=== PATIENT | male | born 1975 | race American Indian/Alaskan Native ===

== ENCOUNTER 2019-03-18 08:24 | Emergency (ER) | payer SELFPAY ==
--- NOTE | 2019-03-18 10:34 | Emergency Department Report ---
HPI - General Chief Complaint: Extremity Injury, Upper Time Seen by Provider: 03/18/19 10:33 - HPI HPI: This is a 43-year-old male here reported that he injured his right thumb about a month ago and is here to have it removed. He reports that the nail is discolored. He reports pain at times around the area but none today. He reports that the swelling. Denies any difficulty in moving right thumb. Denies any fever or chills. Denies any numbness or tingling. He is not having any pain at present. ED Past Medical Hx - Past Medical History Previous Medical History?: Yes Hx Headaches / Migraines: Yes - Surgical History Past Surgical History?: No - Family History Family history: no significant - Social History Smoking Status: Current Every Day Smoker Substance Use Type: Alcohol - Medications Home Medications: Home Medications Medication Instructions Recorded Confirmed Last Taken Type Ibuprofen [Motrin] 800 mg PO Q8HR PRN #12 tablet 03/18/19 Unknown Rx cephALEXin [Keflex] 500 mg PO Q8HR 7 Days #21 cap 03/18/19 Unknown Rx ED Review of Systems ROS: Stated complaint: NAIL REMOVED Other details as noted in HPI Constitutional: denies: chills, fever Respiratory: denies: cough, shortness of breath, wheezing Cardiovascular: denies: chest pain, palpitations Skin: change in hair/nails, other (right thumb with swelling and nail bed injury). denies: rash Neurological: denies: numbness, paresthesias Physical Exam - Physical Exam Vital Signs: Vital Signs 03/18/19 08:48 Temperature 98.5 F Pulse Rate 52 L Respiratory 18 Rate Blood Pressure 142/85 O2 Sat by Pulse 99 Oximetry General: 43-year-old male well-nourished well-developed in no acute distress Physical Exam: Head: Normocephalic atraumatic. Lungs: Clear to auscultated bilaterally, no rhonchi wheezes or rales. No use of accessory muscles. No chest wall tenderness CV: S1, S2. Regular rate rhythm negative murmur. Extremity: No cce. + 2 pulses in all extremities, no neurovascular compromise.No laceration, bruises then or contusion noted to extremities sent for right thumb with discolored nail. Nail bed is intact. Mild tenderness to palpate around nail bed with some erythema. No induration or fluctuance. Musculoskeletal: Range of motion in all extremities sent for minimal pain. Movement of right thumb, no joint crepitus, erythema or effusion. Skin: Clean dry and intact, no rashes no lesions Mood: Normal mood and behavior Body Four View: 1 - Right thumb discolored distal nail. nail is well secured to nail bed with no signs of nail bed injury. Mild erythema surrounding right thumb with some tenderness to palpate but no induration or fluctuance noted. ED Course Vital Signs 03/18/19 08:48 Temperature 98.5 F Pulse Rate 52 L Respiratory 18 Rate Blood Pressure 142/85 O2 Sat by Pulse 99 Oximetry - Reevaluation(s) Reevaluation #1: 03/18/19 11:24 stable throughout ED course. ED Medical Decision Making - Medical Decision Making 43-year-old patient here for removal of nail from right thumb. I discussed with patient that he has nail injury from trauma a month ago but his nail is intact and is secured to his nailbed so there is no reason to remove. Area cleansed with saline and dry dressing placed the site at patient request. I told him that he needs to keep it clean and dry and to apply warm compresses. I also discussed with him that I will put him on antibiotic for minor infection of his finger.. I discussed diagnosis, treatment plan with the patient and discussed wi th him that if area becomes worse to return to the emergency room otherwise follow-up with primary care physician that I referred him to. He was understanding and discharged home in stable condition with prescription for Keflex and Motrin. Critical care attestation.: If time is entered above; I have spent that time in minutes in the direct care of this critically ill patient, excluding procedure time. ED Disposition Clinical Impression: Paronychia of thumb Qualifiers: Laterality: right Qualified Code(s): L03.011 - Cellulitis of right finger Disposition: - TO HOME OR SELFCARE Is pt being admited?: No Does the pt Need Aspirin: No Condition: Stable Instructions: Paronychia (ED) Additional Instructions: Warm compresses to affected area Keep affected ear clean and dry Primary care physician in 2-3 days Take medication as prescribed If Area becomes worse, return to the emergency room Referrals: PRIMARY CARE, [Primary Care Provider] - 2-3 Days [facility] [Outside] - 2-3 Days Forms: Work/School Release Form(ED)
[2019-03-18 11:35] VITALS: BP 140/80
== END 2019-03-18 11:34 | disposition home or self-care (01) ==
LOC: ED 08:24
DX: L03.011 Cellulitis of right finger (principal); G43.909 Migraine, unspecified, not intractable, without status migrainosus; F17.200 Nicotine dependence, unspecified, uncomplicated; Z79.899 Other long term (current) drug therapy